=== PATIENT | male | born 2000 | race Caucasian/White ===

== ENCOUNTER 2021-03-29 23:05 | Emergency (ER) | payer OTHER, SELFPAY ==
[2021-03-29 23:05] VITALS: BP 140/86; PULSE 56; RESP 18; TEMP 36.7; O2SAT 97; BMI 27.2
[2021-03-29] MEDS: Lidocaine 1% (20 ml mdv) 20 ML Vial 10 ML INFILT (23:17)
[2021-03-29 23:38] VITALS: PULSE 72; RESP 16
--- NOTE | 2021-03-29 23:39 | EX.ED.UPPERE ---
HPI History of Present Illness Chief Complaint: Laceration Informant: patient and friend Occured/Mechanism Mechanism/Context: Yes injury Onset/Context/Timing Onset: Today and Hours Context: Sudden Onset Timing: Continuous Current Severity: Mild Maximum Severity: Mild Associated Symptoms Associated Symptoms: Negative for Parasthesia, Weakness and Loss of Funtion Narrative Narrative: 20-year-old male no sniffing past medical history. [employer] student. Fell into a window causing a laceration of his left elbow. He is right-hand dominant. He denies any foreign body sensation. He denies any numbness. States his tetanus is up-to-date. He denies any other injuries. Tetanus Immunization: <5 years Prior similar symptoms: No Recent Illness/Hospitalization: No PFSH PFSH Medical History no medical history no medical history Allergy/AdvReac Type Severity Reaction Status Date / Time No Known Allergies Allergy Verified 03/29/21 23:07 Family History no significant family his Surgical History no surgical history Social History Smoking Status: Never smoker ROS ROS ED ROS Narrative Denies recent illness. Review of Systems ROS Unobtainable: Denies due to encephalopathy Constitutional Constitutional ED: Denies fever(s) Eyes Eyes: Denies change in vision ENT ENT ED: Denies ear pain Cardiovascular Cardiovascular: Denies chest pain Respiratory/Chest Respiratory/Chest: Denies dyspnea Gastrointestinal Gastrointestinal: Denies abdominal pain Genitourinary Genitourinary ED: Denies dysuria Musculoskeletal Musculoskeletal: Denies myalgias Integumentary Denies rash Neurologic Neurologic: Denies headache(s) Psychiatric Psychiatric: Denies depression Endocrine Endocrinology: Denies polyuria Hematologic/Lymphatic Hematologic/Lymphatic: Denies easy bruising Allergic/Immunologic Allergic/Immunologic ED: Denies urticaria EXAM Physical Exam Narrative Exam Narrative: Well-appearing 20-year-old male. No acute distress. Vital signs stable afebrile. H EENT exam unremarkable. Atraumatic. Neck nontender. Trachea midline. Lungs clear to auscultation bilaterally. Heart regular rhythm no murmur. Chest wall nontender. Abdomen soft nontender. Back nontender. Moving all 4 extremities. Neurovascular intact. Full range of motion. Left elbow dorsal and lateral aspect is about 3 to 4 cm laceration on the left lateral elbow. It involves the skin and subcu tissue. He has full flexion-extension of the elbow. There is no arterial bleeding. Mild oozing. No foreign body. No involvement of the joint. No foreign body noted. This will obviously need repaired. Left hand is neurovascularly intact with normal motor strength, sensation and range of motion. Const Vital Signs: 03/29/21 23:05 03/29/21 23:38 Temperature 98.0 F Temperature Source Temporal Pulse Rate 56 L 72 Respiratory Rate 18 16 Blood Pressure 140/86 H Blood Pressure Mean 104 Pulse Ox 97 Oxygen Delivery Method Room Air Positive well nourished and well developed; Negative for obese, cachectic, contractures or unkempt General Appearance ED: well developed and NAD; Negative for unkempt, cachectic, contractures, cyanotic or diaphoretic Nutritional Appearance: Negative for cachectic or obese HEENT Reports moist mucous membranes normocephalic and atraumatic; Negative for trauma Eyes PERRL and EOMs intact bilaterally Neck full ROM and supple General: Negative for tenderness Chest Wall inspection of chest normal and palpation of chest normal Resp normal respiratory effort and clear to auscultation bilaterally Auscultation: Negative for rales, rhonchi or wheezes Cardio regular rate, regular rhythm, S1 normal heart sound, S2 normal heart sound and no murmurs GI non-tender, non-distended and no masses Auscultation: normoactive bowel sounds Palpation: soft; Negative for tender or guarding Back/Spine no CVA tenderness General Back: Negative for CVA tenderness Cervical Spine: Negative for cervical spine tenderness Thoracic Spine / Upper Back: Negative for thoracic spinal tenderness Lumbar Spine / Lower Back: Negative for lumbar spinal tenderness Extremity normal to inspection and full ROM Extremity Narrative: Except left elbow 3 to 4 cm laceration. Flap. No foreign body. No infection. Full flexion-extension. Left hand neurovascularly intact. No pulsatile bleeding. Local anesthetized with lidocaine. Cleaned with Shur-Clens. Washed and irrigated with saline. Closed using five 4-0 Ethilon sutures. Proper hemostasis wound closure obtained. Patient tolerated procedure well and was instructed on wound care and suture removal in 10 to 14 days. General Extremety ED: Negative for edema General Extremity: Negative for edema Neuro oriented x3, moves all extremities, no focal motor deficits and no sensory deficits noted Sensorium / Orientation: alert, oriented to person, oriented to place and oriented to time; Negative for orientation impaired, lethargic or stuporous Motor Exam: strength 5/5 throughout Psych mental status grossly normal Appearance: Negative for unkempt Mood & Affect: Negative for depressed or tearful Skin Skin Narrative: Left elbow laceration. Lesions: no lesions Rashes: no rashes Trauma: laceration; Negative for no lacerations or abrasions MDM MDM MDM Narrative Medical decision making narrative: College student left elbow laceration. Tetanus up-to-date. Wound clean. Anesthetized explored and suture repaired. Discharged to home. Procedures Lacerations Left elbow laceration: Length: 1.57 in Depth: Sub Q Shape: Flap Prep: Shure-Clens Laceration repair: Irrigated, Lidocaine and Local Number of Sutures/[place]: 5 Suture Information: Ethilon and 4-0 Discharge Plan Triage Chief Complaint: Laceration ED Provider: Carlos Marcial Dx/Rx/DC Orders Clinical Impression: Laceration of elbow, left Instructions: ED Laceration: All Closures Primary Care Provider: NOT,DEFINED Referrals: German Cervantes MD [NON-STAFF] - 10-14 Days suture removal NOT,DEFINED [Primary Care Provider] - Activity Restrictions/Additional Instructions: Keep the area dry and clean. You can shower but just dried off well when you are done. Clean it daily with soap and water or peroxide and water. Apply antibiotic ointment. Watch for any signs of infection such as pus, redness, swelling fever or red streaks. If seen return. Suture removal in 10 to 14 days. Tylenol and/or Motrin for pain. Ice to decrease swelling. I would avoid strenuous lifting or exercise of the left elbow for the next 2 days. Disposition Disposition: Home, Self Care
== END 2021-03-29 23:55 | disposition home or self-care (01) ==
LOC: ED 23:46
PROVIDERS: Emergency Provider Emergency Medicine
DX: S51.012A Laceration without foreign body of left elbow, initial encounter (principal); W26.8XXA Contact with other sharp object(s), not elsewhere classified, initial encounter; Y93.9 Activity, unspecified; Y92.214 College as the place of occurrence of the external cause
CPT/HCPCS: 12002; 99283

== ENCOUNTER 2021-06-30 18:33 | Emergency (ER) | payer OTHER, SELFPAY ==
[2021-06-30 18:33] VITALS: BP 140/61; PULSE 45; RESP 16; TEMP 36.4; O2SAT 98; BMI 27.5
--- NOTE | 2021-06-30 20:52 | EX.ED.VIS.EY ---
HPI History of Present Illness Chief Complaint: Eye Problem Narrative Narrative: 20-year-old male presenting with left eye drainage. 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 Is not sure why. He states he has no trauma to the eye. He is not been rubbing it. He has no visual complaints. No systemic signs or symptoms. He is a noncontact wearer. PFSH PFS Medical History no medical history Home Medications erythromycin 1 applic LEFT EYE TID #3.5 g 06/30/21 [Rx Last Taken Unknown] Allergy/AdvReac Type Severity Reaction Status Date / Time No Known Allergies Allergy Verified 06/30/21 20:54 Surgical History no surgical history Social History Smoking Status: Never smoker ROS ROS ED Constitutional Constitutional ED: Denies chills, fever(s) or sweats Eyes Eyes: Reports other Details: Left eye drainage ; Denies blurry vision or change in vision ENT ENT ED: Denies rhinorrhea or sore throat Cardiovascular Cardiovascular: Denies chest pain or palpitations Respiratory/Chest Respiratory/Chest: Denies cough or dyspnea Gastrointestinal Gastrointestinal: Denies abdominal pain, nausea or vomiting Genitourinary Genitourinary ED: Denies dysuria or hematuria Musculoskeletal Musculoskeletal: Denies arthralgias or myalgias Integumentary Denies rash Neurologic Neurologic: Denies headache(s) or weakness EXAM Physical Exam Const Vital Signs: 06/30/21 18:33 Temperature 97.5 F L Temperature Source Temporal Pulse Rate 45 L Respiratory Rate 16 Blood Pressure 140/61 H Blood Pressure Mean 87 Pulse Ox 98 Oxygen Delivery Method Room Air Positive well nourished General Appearance ED: NAD HEENT atraumatic Eyes Eyelid: eyelids abnormal left lower eyelid lid margins crusty/scaly and other Sclera: sclera abnormal Positive for left Details: scleral injection Details: Positive for medial Cornea: cornea normal Neck no lymphadenopathy and supple Resp normal respiratory effort and clear to auscultation bilaterally Cardio regular rate and regular rhythm GI non-tender Palpation: soft Neuro oriented x3 and CN's II-XII intact bilaterally Sensorium / Orientation: alert Psych Mood & Affect: Negative for depressed or tearful MDM MDM MDM Narrative Medical decision making narrative: Patient has conjunctivitis. 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 We will start him on topical antibiotics. He is a noncontact wearer. Patient given follow-up with ophthalmology should this worsen. Patient discharged home in stable condition. Impression: 1. Left eye conjunctivitis Discharge Plan Triage Chief Complaint: Eye Problem ED Provider: Owen Piedra Dx/Rx/DC Orders Instructions: ED Conjunctivitis, Bacterial Prescriptions: New erythromycin 5 mg/gram (0.5 %) ointment 1 applic LEFT EYE TID Qty: 3.5 RF: 0 Primary Care Provider: Care Physician,No Primary Referrals: Yanick Uribe MD [STAFF PHYSICIAN] - 3-5 Days Care Physician,No Primary [Primary Care Provider] - Disposition Disposition: Home, Self Care
[2021-06-30] MEDS: Erythromycin Base 1 OPTH.TUBE 1 APPLIC RIGHT EYE (20:54)
[2021-06-30 21:03] VITALS: RESP 16
== END 2021-06-30 21:03 | disposition home or self-care (01) ==
PROVIDERS: Emergency Provider Student in an Organized Health Care Education/Training Program; Visit Provider Student in an Organized Health Care Education/Training Program
DX: H10.9 Unspecified conjunctivitis (principal)
CPT/HCPCS: 99282

== ENCOUNTER 2021-07-01 12:02 | Emergency (ER) | payer OTHER, SELFPAY ==
[2021-07-01 12:02] VITALS: BP 133/58; PULSE 41; RESP 16; TEMP 36.2; O2SAT 97; BMI 27.2
--- NOTE | 2021-07-01 12:12 | EDS_ITS ---
HPI History of Present Illness Chief Complaint: Allergic Reaction Informant: patient Onset/Context/Timing Onset: Yesterday Current Severity: Mild Maximum Severity: Mild Narrative Narrative: Patient presents secondary to increased left eye swelling and redness. Patient was seen yesterday for conjunctivitis. 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 He was given erythromycin ointment last evening. Use the ointment around 8 PM last evening, 12:30 AM, and 11 AM this morning upon waking. He has noted increased left eye redness and swelling. He was concern for allergic reaction to the medication presented for evaluation. PFSH PFS Medical History no medical history no medical history Home Medications erythromycin 1 applic LEFT EYE TID #3.5 g 06/30/21 [Rx Last Taken Unknown] Allergy/AdvReac Type Severity Reaction Status Date / Time No Known Allergies Allergy Verified 07/01/21 12:07 Surgical History no surgical history Social History Smoking Status: Never smoker ROS ROS ED Constitutional Constitutional ED: Denies chills or fever(s) Eyes Eyes: Reports other Details: Left eye irritation ; Denies blurry vision or change in vision ENT ENT ED: Denies rhinorrhea or sore throat Cardiovascular Cardiovascular: Denies chest pain Respiratory/Chest Respiratory/Chest: Denies cough or dyspnea Gastrointestinal Gastrointestinal: Denies abdominal pain Genitourinary Genitourinary ED: Denies hematuria Musculoskeletal Musculoskeletal: Denies back pain or neck pain Integumentary Denies rash Neurologic Neurologic: Denies headache(s) Allergic/Immunologic Allergic/Immunologic ED: Denies urticaria EXAM Physical Exam Const Vital Signs: 07/01/21 12:02 Temperature 97.1 F L Temperature Source Temporal Pulse Rate 41 L Respiratory Rate 16 Blood Pressure 133/58 H Blood Pressure Mean 83 Pulse Ox 97 Oxygen Delivery Method Room Air Positive well nourished and well developed General Appearance ED: well developed HEENT Reports moist mucous membranes Eyes Eyes Narrative: Left eyelid edema with mild erythema. Crusting noted in the lashes. No significant conjunctival injection at this time. Extraocular movements fully intact without difficulty. Neck supple Chest Wall inspection of chest normal Resp normal respiratory effort Cardio regular rate and regular rhythm Extremity normal to inspection Neuro oriented x3 Sensorium / Orientation: alert Psych mental status grossly normal [facility] Treatment and Re-Evaluation Narrative: Patient we switched from erythromycin ointment to gentamicin eyedrops. First dose will be given here and he will take a bottle with him. He will be provided the phone number for ophthalmology if not improving. Discharge Plan Triage Chief Complaint: Allergic Reaction ED Provider: Claudine Velasquez Dx/Rx/DC Orders Clinical Impression: Conjunctivitis Instructions: ED Conjunctivitis, Nonspecific Prescriptions: No Action erythromycin 5 mg/gram (0.5 %) ointment 1 applic LEFT EYE TID Qty: 3.5 RF: 0 Primary Care Provider: Care Physician,No Primary Referrals: Yanick Uribe MD [STAFF PHYSICIAN] - 3-5 Days if not improving Care Physician,No Primary [Primary Care Provider] - Activity Restrictions/Additional Instructions: Place 2 drops of gentamicin to the affected eye 4 times daily until symptoms fully resolved for 24 hours. If not improving over the next 2 to 3 days please follow-up with ophthalmology as listed. Disposition Disposition: Home, Self Care
[2021-07-01] MEDS: Gentamicin Sulfate 1 OPTH.BTL 2 DRP LEFT EYE (12:14)
== END 2021-07-01 12:23 | disposition home or self-care (01) ==
LOC: ED 12:22
PROVIDERS: Emergency Provider Emergency Medicine; PCP Pediatrics; Visit Provider Emergency Medicine
DX: H10.9 Unspecified conjunctivitis (principal)
CPT/HCPCS: 99282

== ENCOUNTER 2022-02-19 15:27 | Emergency (ER) | payer OTHER, SELFPAY ==
[2022-02-19 15:28] VITALS: BP 141/75; PULSE 71; RESP 16; TEMP 37.7; O2SAT 98; BMI 25.8
--- NOTE | 2022-02-19 16:15 | EDS_ITS ---
HPI History of Present Illness Chief Complaint: General Illness Narrative Narrative: 21-year-old male presenting with subjective fever, chills, body aches which started this morning. He states that about 4 weeks he inadvertently cut his right thumb while feel dressing a bore and noted that the blood got into the wound. He states that this became infected but has since then healed. He has a friend who is a professor which instructed him to come to the ER to be tested for trichinosis. Patient states that he was told this professor told him that this is what happens with trichinosis is that the wound initially heals and then it comes back to bite you. Patient does states that he has had a little bit of a cough since this morning. Nonproductive. He does not have any nausea or vomiting. PFSH PFSH Medical History no medical history Home Medications erythromycin 5 mg/gram (0.5 %) eye ointment 1 applic LEFT EYE TID #3.5 grams 06/30/21 [Rx Last Taken Unknown] metronidazole 500 mg tablet 500 mg PO BID 10 days #20 tabs 02/19/22 [Rx Last Taken Unknown] Allergy/AdvReac Type Severity Reaction Status Date / Time No Known Allergies Allergy Verified 02/19/22 15:27 Surgical History no surgical history Social History Smoking Status: Never smoker ROS ROS ED Constitutional Constitutional ED: Reports chills and subjective Eyes Eyes: Denies change in vision or diplopia ENT ENT ED: Denies rhinorrhea or sore throat Cardiovascular Cardiovascular: Denies chest pain Respiratory/Chest Respiratory/Chest: Reports cough; Denies dyspnea Gastrointestinal Gastrointestinal: Denies abdominal pain, constipation, nausea or vomiting Genitourinary Genitourinary ED: Denies dysuria or hematuria Musculoskeletal Musculoskeletal: Denies arthralgias or back pain Integumentary Denies abscess or Abrasions Neurologic Neurologic: Denies headache(s) or paresthesias Psychiatric Psychiatric: Denies anxiety or depression EXAM Physical Exam Const Vital Signs: 02/19/22 15:28 02/19/22 16:08 Temperature 99.8 F H Temperature Source Temporal Pulse Rate 71 Respiratory Rate 16 Respiratory Effort Normal Non-Labored Respiratory Pattern Normal Blood Pressure 141/75 H Blood Pressure Mean 97 Pulse Ox 98 Oxygen Delivery Method Room Air Positive well nourished General Appearance ED: NAD; Negative for pallor HEENT Reports moist mucous membranes Negative for trauma Eyes PERRL and EOMs intact bilaterally Chest Wall inspection of chest normal Resp normal respiratory effort and clear to auscultation bilaterally Auscultation: Negative for rales, rhonchi or wheezes Cardio regular rate Rate: tachycardic GI normal to inspection, nondistended, normoactive bowel sounds Neuro oriented x3 and CN's II-XII intact bilaterally Sensorium / Orientation: alert Skin no rashes or lesions noted Skin Narrative: Scar noted to the dorsum of the right thumb with no signs of induration, crepitance, lymphangitic streaking. This appears to be in normal stages of healing. General Skin Exam: Negative for jaundice or pallor MDM MDM MDM Narrative Medical decision making narrative: Patient presenting with subjective fevers, chills, body aches, mild cough. Vital signs are stable and he is afebrile. Heart regular rate and rhythm without murmur. Respiratory rate normal. Lungs clear to auscultation bilaterally. Patient expresses concern that he has trichinosis from a wound that he sustained while feel dressing a bore. This was about 4 weeks ago and the wound is now healed. I counseled him that his symptoms are most likely viral and that this is unlikely. I did offer to test him for COVID but he states he does not want to pay for the test. He does however want blood work. CBC shows no leukocytosis. Hemoglobin stable. Platelets are normal. No eo sinophilia. Patient slightly lymphopenic. Although most likely source would be viral illness I did speak with Dr. Seals who stated it is possible he could contract trichonosis from blood products from the border. He recommended giving the patient Flagyl 500 mg p.o. twice daily which was prescribed. First dose was given in the ER. Patient stable upon discharge. Impression: 1. Viral syndrome 2. Concern for trichinosis Lab Data Attestation: I reviewed the patient's lab results. Labs: Laboratory Results - last 24 hr 02/19/22 16:31 WBC 4.5 RBC 5.10 Hgb 15.2 Hct 43.6 MCV 85.5 MCH 29.8 MCHC 34.9 RDW Std Deviation 38.5 RDW Coeff of [place] 12.1 Plt Count 175 MPV 9.8 Immature Gran % (Auto) 0.200 Neut % (Auto) 69.3 Lymph % (Auto) 13.4 L [place] % (Auto) 12.1 H Eos % (Auto) 4.6 Baso % (Auto) 0.4 Absolute Neuts (auto) 3.1 Absolute Lymphs (auto) 0.61 L Nucleated RBC % 0 Discharge Plan Triage Chief Complaint: General Illness ED Provider: Owen Piedra Dx/Rx/DC Orders Prescriptions: New metronidazole 500 mg tablet 500 mg PO BID 10 Days Qty: 20 0RF No Action erythromycin 5 mg/gram (0.5 %) ointment 1 applic LEFT EYE TID Qty: 3.5 0RF Primary Care Provider: German Cervantes Referrals: German Cervantes MD [Primary Care Provider] - Elmer Seals DO [Med Staff - Active Staff] - As Needed Disposition Disposition: Home, Self Care
[2022-02-19 16:54] LABS: Absolute Lymphocyte Count 0.61 X10^3/uL (0.83-4.51); Absolute Neutrophil Count 3.1 X10^3/uL (2.0-7.7); Basophil# 0.02 X10^3/uL; Basophil% 0.4 % (0-1); Eosinophil# 0.21 X10^3/uL; Eosinophils% 4.6 % (0-5); Hematocrit 43.6 % (40-54); Hemoglobin 15.2 g/dL (13.0-16.5); Lymphocyte # 0.61 X10^3/ul (0.83-4.51); Lymphocyte % 13.4 % (19-41); Mean Corp Hgb Conc 34.9 g/dL (32-36); Mean Corpuscular Hgb 29.8 pg (27.0-32.0); Mean Corpuscular Volume 85.5 fL (80-94); Mean Platelet Vol. 9.8 fl (6.2-12.0); Monocyte# 0.55 X10^3/uL; Monocyte% 12.1 % (0-10); NRBC Flagged by Analyzer 0 % (0-5); Neutrophil # 3.14 X10^3/uL (2.7-7.7); Neutrophil % 69.3 % (47-70); Platelet Count 175 K/mm3 (150-450); RBC Distribution Width CV 12.1 % (11.6-14.6); RBC Distribution Width SD 38.5 fl (35.1-43.9); White Blood Count 4.5 K/mm3 (4.4-11.0)
[2022-02-19] MEDS: metroNIDAZOLE 500 MG Tablet PO (17:49)
[2022-02-19 17:51] VITALS: PULSE 78; RESP 17; O2SAT 98
== END 2022-02-19 17:51 | disposition home or self-care (01) ==
PROVIDERS: Emergency Provider Student in an Organized Health Care Education/Training Program; PCP Pediatrics; Visit Provider Student in an Organized Health Care Education/Training Program
DX: B34.9 Viral infection, unspecified (principal); Z77.128 Contact with and (suspected) exposure to other hazards in the physical environment
CPT/HCPCS: 85025; 99283